=== PATIENT | female | born 1975 | race Caucasian/White ===

== ENCOUNTER 2017-10-06 07:28 | Day surgery (SDC) | payer BC, SELFPAY ==
[2017-10-02 09:29] LABS: Hemoglobin 13.6 g/dl (12.0-15.0); Mean Corp Hgb Conc 31.6 g/gl (32-36); Mean Corpuscular Hgb 29.6 pg (27.0-32.0); Mean Corpuscular Volume 93.5 fL (81-99); Mean Platelet Vol. 9.5 fl (6.2-12.0); Platelet Count 339 K/mm3 (150-450); RBC Distribution Width CV 13.7 % (11.6-14.6); RBC Distribution Width SD 47.1 fl (35.1-43.9)
[2017-10-02 09:34] LABS: International Normalized Ratio 0.9; Prothrombin Time (Protime)PT. 12.6 SECONDS (11.7-14.9)
[2017-10-02 09:35] LABS: Partial Thromboplast Time 24.8 Seconds (24.1-36.2)
[2017-10-02 09:37] LABS: Scan Indicated on CBC? Y/N NO
[2017-10-02 09:50] LABS: Anion Gap 7 (5-15); BUN 18 mg/dL (7-18); BUN/Creat Ratio 20.4 RATIO (10-20); Calcium,Total 8.7 mg/dL (8.5-10.1); Chloride 105 mmol/L (98-107); Creatinine, Serum 0.88 mg/dL (0.55-1.02); EST Glomerular Filtration Rate 74 mL/min (>60); Est Glom Filt Rate - Afr Amer 89 mL/min (>60); Glucose 94 mg/dL (74-106); Potassium 4.4 mmol/L (3.5-5.1); Sodium Level 140 mmol/L (136-145)
--- NOTE | 2017-10-05 21:12 | PCM.HP.BLA ---
History and Physical Date of Admission: 10/06/17 Surgical History and Physical Nancy Owens, a 42 year old female 0 4 0 0 2, presents for RAVH/BSO on October 06, 2017 at 9:30. -- Chronic pelvic pain prior BTO; Irreg bleeding on multiple OCPs tried; dyspareunia -- Pelvic pain which began May and has been present months. Nancy characterizes the quality cramping; Nancy characterizes the quality sharp. Severity is moderate; Associated signs and symptoms are pain with IC. Conservative measures have not been helpful. Prior x 3. MEDICATIONS HISTORY: Current medications prescribed by our practice are: 1. Low-Ogestrel (28) 0.3 mg-30 mcg tablet, 1 po daily Patient is also takin. lisinopril 5 mg tablet, 1 daily 2. Klonopin 0.5 mg tablet ALLERGIES: Morphine, Skin crawling, Sulfonamides, Anaphylaxis rxn, Morphine, Itching of skin, Sulfa (Sulfonamide Antibiotics) and Anaphylaxis Infections - Chicken pox Illnesses - PIH, Gestational DM, PCOS dx'd at 13y.o., Pitting edema, fibromyalgia and osteoarthritis Accidents - no injuries of consequence Hospitalizations - Childbirth and see surgery Review of Systems: GENERAL - Denies fever, or chills SKIN - Denies skin changes EYES - Denies visual changes EARS - Denies difficulty hearing NOSE - Denies nasal congestion or bleeding MOUTH - Denies sore throat or difficulty swallowing NECK - Denies pain or swelling RESPIRATORY - Denies shortness of breath or wheezing CARDIOVASCULAR - Denies palpitations or chest pain GASTROINTESTINAL - Denies nausea, vomiting, diarrhea, constipation GENITOURINARY - Denies dysuria, frequency of urination, incontinence of urine MUSCULOSKELETAL - Denies joint or muscle pain NEUROLOGICAL - Denies localized numbness or weakness PSYCHIATRIC - Denies depression or anxiety ENDOCRINE - Denies heat or cold intolerance, weight loss or gain HEMATO-IMMUNOLOGIC - Denies excesive bleeding with cuts SOCIAL HISTORY: Alcohol Use - denies drinking Smoking - denies smoking Diet - no particular diet Exercise - active Seat Belt Use - always Employer - [employer], [employer] Job Description - peer tutor, wine pouring Illicit Drug Use - denies use of street drugs Sexual Activity - and ACTIVE ONE PARTNER Spouse-Sig Other Name - [place] Spouse-Sig Other Occupation - [employer] Children Name(s) - Yariel Pradhan Control - Prior Tubal FAMILY HISTORY: Family history of Diabetes, Heart Disease, Uterine cancer and Breast cancer. MENSTRUAL HISTORY: LMP Known?- DefiniteAmount/Duration - 5-7, Regularity - regular, LMP - 09/29/17, Age Onset Menarche - 12 PAST PREGNANCIES: Total Pregnancies - 4; Full Term Pregnancies - 0; Premature - 4; Abortions, Induced - 0; Abortions, Spontaneous - 0; Ectopics - 0; Multiple Births - 0; Living Children - 2 SURGICAL HISTORY: 1. 06/09/2001 ; - 2. 04/13/2003 ; - 3. 07/30/2004 ; - 4. cholecystectomy ; - 5. Laparoscopy 1989 ; - 6. 07/30/2004 Tubal ; - 7. Laser Spinal Surgery, 11/20 ; - 8. Lithotripsy, basket extraction, 04/21, 05/22 ; - PHYSICAL EXAM BP- 132/86 Sitting, Right arm, regular cuff Weight- 196.00412 lbs Height- 62.75 inch BMI:35.07 CONSTITUTIONAL - NAD, well nourished, and well developed HEENT - Normocephalic, PERRLA, EOMI NECK - no nuchal rigidity EXTREMITIES - No edema or calf tenderness NEUROLOGICAL - Cranial nerves II-XII grossly intact PSYCHIATRIC - A and O to time, place, person, mood and affect External Genitial Vagina - normal appearance, no lesions and no abnormal discharge Urethra/Urethral Meatus - non-tender Bladder - non-tender Vagina - vaginal dorsey are pink and moist without loss of rugae and no evidence of atropy Cervix - no lesions noted ASSESSMENT/PLAN: 1. Abdominal Pain,Multiple Sites, Lower Abdominal Pain, Unspecified, Pain Localized To Other Parts Of Lower Abdomen, Pelvic Pain and Unspec Pain likely due to endometriosis, adenomyosis, or scar tissue (multiple C/S) Pain with intercourse if deep inside. May be due to bumping against cervix or ovaries. OCPs not helpful and declines further surgery. Wants to proceed with RAVH/BSO. Discussed RBAs and all questions answered.
--- NOTE | 2017-10-05 21:15 | HP.PCM_ITS ---
History and Physical Date of Admission: 10/06/17 Surgical History and Physical Nancy Owens, a 42 year old female 0 4 0 0 2, presents for RAVH/ BSO on October 06, 2017 at 9:30. -- Chronic pelvic pain prior BTO; Irreg bleeding on multiple OCPs tried; dyspareunia -- Pelvic pain which began May and has been present months. Nancy characterizes the quality cramping; Nancy characterizes the quality sharp. Severity is moderate; Associated signs and symptoms are pain with IC. Conservative measures have not been helpful. Prior x 3. MEDICATIONS HISTORY: Current medications prescribed by our practice are: 1. Low-Ogestrel (28) 0.3 mg-30 mcg tablet, 1 po daily Patient is also takin. lisinopril 5 mg tablet, 1 daily 2. Klonopin 0.5 mg tablet ALLERGIES: Morphine, Skin crawling, Sulfonamides, Anaphylaxis rxn, Morphine, Itching of skin, Sulfa (Sulfonamide Antibiotics) and Anaphylaxis Infections - Chicken pox Illnesses - PIH, Gestational DM, PCOS dx'd at 13y.o., Pitting edema, fibromyalgia and osteoarthritis Accidents - no injuries of consequence Hospitalizations - Childbirth and see surgery Review of Systems: GENERAL - Denies fever, or chills SKIN - Denies skin changes EYES - Denies visual changes EARS - Denies difficulty hearing NOSE - Denies nasal congestion or bleeding MOUTH - Denies sore throat or difficulty swallowing NECK - Denies pain or swelling RESPIRATORY - Denies shortness of breath or wheezing CARDIOVASCULAR - Denies palpitations or chest pain GASTROINTESTINAL - Denies nausea, vomiting, diarrhea, constipation GENITOURINARY - Denies dysuria, frequency of urination, incontinence of urine MUSCULOSKELETAL - Denies joint or muscle pain NEUROLOGICAL - Denies localized numbness or weakness PSYCHIATRIC - Denies depression or anxiety ENDOCRINE - Denies heat or cold intolerance, weight loss or gain HEMATO-IMMUNOLOGIC - Denies excesive bleeding with cuts SOCIAL HISTORY: Alcohol Use - denies drinking Smoking - denies smoking Diet - no particular diet Exercise - active Seat Belt Use - always Employer - [employer] Job Description - professional tutor, wine pouring Illicit Drug Use - denies use of street drugs Sexual Activity - and ACTIVE ONE PARTNER Spouse-Sig Other Name - [place] Spouse-Sig Other Occupation - [employer] Children Name(s) - Yariel Pradhan Control - Prior Tubal FAMILY HISTORY: Family history of Diabetes, Heart Disease, Uterine cancer and Breast cancer. MENSTRUAL HISTORY: LMP Known?- DefiniteAmount/Duration - 5-7, Regularity - regular, LMP - 09/29/17, Age Onset Menarche - 12 PAST PREGNANCIES: Total Pregnancies - 4; Full Term Pregnancies - 0; Premature - 4; Abortions, Induced - 0; Abortions, Spontaneous - 0; Ectopics - 0; Multiple Births - 0; Living Children - 2 SURGICAL HISTORY: 1. 06/09/2001 ; - 2. 04/13/2003 ; - 3. 07/30/2004 ; - 4. cholecystectomy ; - 5. Laparoscopy 1989 ; - 6. 07/30/2004 Tubal ; - 7. Laser Spinal Surgery, 11/20 ; - 8. Lithotripsy, basket extraction, 04/21, 05/22 ; - PHYSICAL EXAM BP- 132/86 Sitting, Right arm, regular cuff Weight- 196.22337 lbs Height- 62.75 inch BMI:35.07 CONSTITUTIONAL - NAD, well nourished, and well developed HEENT - Normocephalic, PERRLA, EOMI NECK - no nuchal rigidity EXTREMITIES - No edema or calf tenderness NEUROLOGICAL - Cranial nerves II-XII grossly intact PSYCHIATRIC - A and O to time, place, person, mood and affect External Genitial Vagina - normal appearance, no lesions and no abnormal discharge Urethra/Urethral Meatus - non-tender Bladder - non-tender Vagina - vaginal dorsey are pink and moist without loss of rugae and no evidence of atropy Cervix - no lesions noted ASSESSMENT/PLAN: 1. Abdominal Pain,Multiple Sites, Lower Abdominal Pain, Unspecified, Pain Localized To Other Parts Of Lower Abdomen, Pelvic Pain and Unspec Pain likely due to endometriosis, adenomyosis, or scar tissue ( multiple C/S) Pain with intercourse if deep inside. May be due to bumping against cervix or ovaries. OCPs not helpful and declines further surgery. Wants to proceed with RAVH/BSO. Discussed RBAs and all questions answered.
[2017-10-06] VITALS (10 sets, daily range): BP systolic 103–150; BP diastolic 71–90; PULSE 75–87; RESP 18–20; TEMP 36.2–37.4; O2SAT 94–100; BMI 34.2
--- NOTE | 2017-10-06 10:25 | PCM.OP.BLANK ---
Operative Report Date of Procedure: 10/06/17 Surgeon: Samson Anders MD, FACOG Wool Fleece Grader: JANAE Toney Anesthesia: Kellie Moscoso MD Type of anesthesia: General Endotracheal Procedure: Robotic Assisted Vaginal Hysterectomy and Bilateral Salpingoophrectomy Pre-Op: Endometriosis, Pelvic Pain, Irregular Cycles Post-Op: Endometriosis, Pelvic Pain, Irregular Cycles Findings: 8 cm uterus with normal appearing tubes and ovaries bilaterally; adhesions of omentum to anterior abdominal wall; adhesions of the bladder to the anterior uterus from prior C-sections Indication: This is a 42 year old patient who has been having the above problems. Conservative measures have not been helpful. The patient has been counseled regarding the risks, benefits and alternatives of this procedure including the possibility of bleeding, infection, and injury to surrounding structures such as bowel bladder and all questions were answered. She understands that is BSO is needed that she will need to be on HRT for an indefinite period of time. Procedure: Pt taken to the operating room where after induction of general anesthesia the patient was prepped and draped in the usual sterile fashion and placed on a non-slip Huggy-u-vac device. Trendendelenburg test was satisfactory. Bladder was drained of urine with a Swain catheter which was left in place. Anterior cervix grasped and cervix was dilated to about 3-4 mm. Uterus sounded to 9 cms. 0-Vicryl suture was placed at the 3:00 and 9:00 position of the cervix. A small v-care device was then placed in the uterus to allow uterine manipulation and attention was turned to the laparoscopic portion of the procedure. Ropivocaine 0.5% was injected approximately 2-3 cm superior to the umbilicus and an 8 mm robotic camera port was introduced directly with intraperitoneal placement confirmed with insufflation. 8 mm robotic side ports were introduced under direct visualization approximately 11-13 cm lateral and 2 cm inferior to the umbilical port. A 5 mm left upper quadrant port was introduced and airseal insufflation with CO2 was started. The above findings were noted. Robot was docked without difficulty and attention turned to the robotic portion of the procedure. Approximately 20 cc of Ropivicaine was used. Anterior abdominal wall adhesions were taken down with bipolar and monopolar cautery. Bilateral infundibulocal ligaments/mesosalpinx were ligated with 35 guaman bipolar coagulation to the level of the round ligament. The posterior aspect of the cervix was identified and then opened for about 1 cm using 25 watt monopolar cautery identifying the V-care device which had been placed vaginally. Bladder flap was opened and divided to the level of the round ligaments using monopolar cautery. Progressive bites were then ligated on each side of the cervix with 35 guaman bipolar cautery to the uterine arteries. The anterior vaginal mucosa was then entered and cervix circumscribed with monopolar cautery. Uterus and attached ovaries and tubes were then removed through the vagina. Vaginal cuff was closed first with 0-Vicryl Zion stitches placed at each angle followed by closure of the mid-cuff with 0-Monocryl V-lock suture in two layers. Pelvis was copiously irrigated with saline and the right ureter was noted to peristalse. Robot was undocked and trocars were removed with as much gas as possible. Incisions were closed with 4-0 Monocryl subcuticular sutures and incisions covered with steri-strips and opsite dressing. The patient tolerated the procedure well and was taken to the recovery room in satisfactory condition. Sponge, instruments and needle counts were all correct. There were no apparent complications of the surgery. Cefotan 2 gms IV was given prior to the procedure. Estimated Blood Loss: Less than 100 cc Specimen to Pathology: Uterus and bilateral tubes and ovaries
--- NOTE | 2017-10-06 10:35 | PCM.DC.VHY ---
Discharge Diet: No Restrictions Discharge Activity: Return to Normal Activity, May Not Drive - while taking narcotic pain medications., May Shower, May Take a Tub Bath May resume sexual activity in: 6-8 weeks Call your doctor if your incision/area has: Continuous Slow Oozing, Sudden Increased Bleeding, Increased Pain/ Swelling, Increased Redness, Foul Smelling Discharge Call your doctor if you observe: Fever of 101 or Higher, Inability to urinate, Inability to have a bowel movement, Using more than one pad per hour Allergies/Adverse Reactions: Allergies Sulfa (Sulfonamide Antibiotics) Allergy (Verified 09/29/17 13:55) Anaphylaxis venom-honey bee [bee venom (honey bee)] Allergy (Verified 09/29/17 13:55) Anaphylaxis morphine Adverse Reaction (Verified 09/29/17 13:55) Itching Medications to take at Discharge Lisinopril [Zestril] 10 mg PO DAILY 07/26/15 Docusate Sodium [Colace] 100 mg PO BID PRN PRN #60 cap 10/06/17 Estradiol 2 mg PO DAILY #100 tab 10/06/17 Oxycodone [Oxyir] 5 mg PO Q6H PRN PRN 7 Days #20 tab 10/06/17 The following prescriptions were given: Oxycodone [Oxyir] 5 mg PO Q6H PRN PRN 7 Days #20 tab PRN Reason: Severe Pain (-01/14) Docusate Sodium [Colace] 100 mg PO BID PRN PRN #60 cap PRN Reason: Constipation Estradiol 2 mg PO DAILY #100 tab Primary Care Physician: Lucas Reyes MD [Primary Care Provider] - Test Results: Please Follow Up With: Samson Anders MD When: 2-3 weeks
[2017-10-06] MEDS: Ropivacaine 0.5% 30 ML Vial (10:55)
[2017-10-06] MEDS: Ketorolac 30 MG/ML Syringe IV ×2 (14:08→17:47)
[2017-10-06] MEDS: Dextrose 5%-Lactated Ringers 1,000 ML 150 ML IV ×2 (14:08→20:24)
[2017-10-06] MEDS: HYDROmorphone 0.5 MG/0.5 ML SYRINGE IV (15:33)
[2017-10-06] MEDS: 0.9% NaCl Peripheral Flush Adult/Peds IV ×3 (15:34→17:54)
[2017-10-06] MEDS: Enoxaparin 30 MG/0.3 ML Syringe SC (17:47)
[2017-10-06] MEDS: proMETHazine 25 MG/ML Syringe 12.5 MG IV (17:54)
[2017-10-06] MEDS: oxyCODONE 5 MG Tablet PO (20:24)
[2017-10-06] MEDS: Acetaminophen 500 MG Tablet 1000 MG PO (22:01)
--- NOTE | 2017-10-07 | HYST_PTH ---
PATIENT: RAFA RODRIGUEZ [place] [facility] [place][id number] AGE/SX: 42/F ROOM: RE10/06/[address]: Dr. Samson Anders MD : 1975 BED: DIS: 10/07/2017 SPEC #: [id number] RECD: 10/07/17 13:05 STATUS: PORSHA ARGENIS #: [id number] XENIA: 10/07/17 00:[address]: Samson Anders DEPT: SURGICAL PATHOLOGY RECD BY: Gerson Freeman ENTERED: 10/07/17 13:05 SP TYPE: HYSTERECT OTHR DR: Dr. Lucas Reyes MD Tissues: Uterus, NOS Procedures: Surgery Specimen Level V HEADER OPERATION: Robotic assisted vaginal hysterectomy bilateral salpingo PRE-OP DIAGNOSIS: Endometriosis, pelvic pain, irregular cycles TISSUE SUBMITTED: Uterus, cervix, bilateral fallopian tubes, bilateral ovaries MICROSCOPIC DIAGNOSIS Uterus, hysterectomy: Cervix ? nabothian cysts and minimal chronic inflammation. Endometrium ? proliferative endometrium with cystic change. Myometrium ? leiomyoma and superficial adenomyosis. Right ovary and fallopian tube ? tubo-ovarian adhesions and follicular cysts. Left ovary and fallopian tube ? tubo-ovarian adhesions and follicular cysts. Benign paratubal cysts. AM:jadon 10/09/17 MICROSCOPIC DESCRIPTION Slides are reviewed. GROSS DESCRIPTION Received in fixative is one container labeled with the patient's name and designated uterus. The specimen consists of a uterus with attached cervix and attached right and left fallopian tubes and ovaries. The uterus with cervix measures 9.8 x 5.6 x 4.2 cm and weighs 78.8 gm. The external surface is smooth and glistening. The ectocervix is unremarkable. The external os is oval in contour. The endocervical canal measures 3.5 cm in length and is grossly unremarkable. The triangular endometrial cavity measures 4 x 2.8 cm. The velvety, reddish-noriega endometrium measures up to 0.2 cm in thickness. The myometrium measures 2 cm in greatest thickness and contains a smooth, glistening, rubbery nodule measuring 0.7 cm in greatest dimension. The right fallopian tube measures 5 cm in length and 0.5 cm in average diameter and contains a normal fimbriated end. The mid portion of the fallopian tube is closely adherent to the adjacent noriega ovary that measures 4 x 2.5 x 2 cm. The external surface of this ovary and fallopian tube are inked in black ink. Serial sections of the ovary reveal some multiple cysts containing clear to bloody fluid ranging in size from 0.2 to 1.2 cm in greatest dimension. The left fallopian tube and ovary are similar in appearance and also shows tubo-ovarian adhesions. The left fallopian tube measures 5 cm in length and 0.6 cm in diameter. The cystic left ovary measures 3 x 2.5 x 2 cm. The external surface of the ovary and fallopian tube is inked in blue ink. Serial sections of the left ovary reveal multiple cysts ranging in size from 0.7 to 1 cm and containing clear to bloody fluid. [employer] Developer sections are submitted in [] cassettes as follows: 1 - anterior cervix, 2 - posterior cervix, 3 & 4 - anterior uterine wall, 5 & 6 - posterior uterine wall, 7 ? myometrial mass, 8 & 9 ? right ovary and fallopian tube, 1012 ? left ovary and fallopian tube. / AM:jadon 10/07/17 TC:1 CPT: 91701
[2017-10-07] MEDS: Ketorolac 30 MG/ML Syringe IV ×2 (00:09→05:45)
[2017-10-07 02:30] VITALS: BP 108/67; PULSE 80; RESP 18; TEMP 36.8; O2SAT 97
[2017-10-07] MEDS: oxyCODONE 5 MG Tablet PO (03:46)
[2017-10-07] MEDS: Dextrose 5%-Lactated Ringers 1,000 ML 150 ML IV (03:47)
[2017-10-07] MEDS: Acetaminophen 500 MG Tablet 1000 MG PO (05:45)
[2017-10-07] MEDS: 0.9% NaCl Peripheral Flush Adult/Peds IV (05:45)
--- NOTE | 2017-10-07 06:27 | PCM.PN.OB ---
Subjective: Patient without complaints. Tolerating diet well. Positive flatus. Swain out. Denies any nausea. - Physical Exam Vital Signs AF, VSS Temp Pulse Resp BP Pulse Ox 98.2 F 80 18 108/67 97 10/07/17 02:30 10/07/17 02:30 10/07/17 02:30 10/07/17 02:30 10/07/17 02:30 Oxygen Flow Rate (L/min) 1 Oxygen Delivery Method Room Air Weight: 193 lb 1.999 oz Body Mass Index (BMI) 34.2 Intake and Output for Last 24 Hours 10/05/17 10/06/17 10/07/17 23:59 23:59 23:59 Intake Total 2894 / 2894 2564 / 2564 Output Total 590 / 590 1825 / 1825 Balance 2304 / 2304 739 / 739 Wounds are clean, dry, intact. Good urine output. Hemoglobin and creatinine pending for today. Medical Necessity - Tobacco Use Smoking Status: Never smoker Assessment/Plan Doing well postoperative day #1 status post robotic assisted vaginal hysterectomy and bilateral salpingo-oophorectomy. Will release to home with routine instructions. Follow-up in 2 and 6 weeks.
[2017-10-07 06:47] LABS: Hematocrit 36.4 % (37-47); Hemoglobin 11.6 g/dl (12.0-15.0); Mean Corp Hgb Conc 31.9 g/gl (32-36); Mean Corpuscular Hgb 30.1 pg (27.0-32.0); Mean Corpuscular Volume 94.3 fL (81-99); Mean Platelet Vol. 9.3 fl (6.2-12.0); Platelet Count 268 K/mm3 (150-450); RBC Distribution Width CV 13.8 % (11.6-14.6); RBC Distribution Width SD 47.3 fl (35.1-43.9); Red Blood Count 3.86 M/mm3 (4.2-5.4); White Blood Count 7.4 K/mm3 (4.4-11.0)
[2017-10-07 06:49] LABS: Creatinine, Serum 0.79 mg/dL (0.55-1.02); EST Glomerular Filtration Rate 84 mL/min (>60); Est Glom Filt Rate - Afr Amer 102 mL/min (>60); Estimated Creatinine Clearance 75.17 ml/min
[2017-10-07 06:52] LABS: Scan Indicated on CBC? Y/N NO
[2017-10-07 08:55] VITALS: BP 141/84; PULSE 80; RESP 18; TEMP 36.7; O2SAT 98
== END 2017-10-07 09:22 | disposition home or self-care (01) ==
LOC: SDC 07:28 → AC 07:29 → MS3 10-09 09:09
PROVIDERS: Family Provider Family Medicine; PCP Family Medicine; Visit Provider Obstetrics & Gynecology
PROC: 0UT90ZZ Resection of Uterus, Open Approach (ICD-10-PCS; CPT 58552; principal; 2017-10-06 09:10)
DX: D26.1 Other benign neoplasm of corpus uteri (principal); N88.8 Other specified noninflammatory disorders of cervix uteri; N73.6 Female pelvic peritoneal adhesions (postinfective); N83.8 Other noninflammatory disorders of ovary, fallopian tube and broad ligament; N83.02 Follicular cyst of left ovary; N83.01 Follicular cyst of right ovary; Z87.442 Personal history of urinary calculi; K21.9 Gastro-esophageal reflux disease without esophagitis; Z79.899 Other long term (current) drug therapy; I10 Essential (primary) hypertension; K58.9 Irritable bowel syndrome, unspecified; N92.6 Irregular menstruation, unspecified; G89.29 Other chronic pain; R10.2 Pelvic and perineal pain; N94.10 Unspecified dyspareunia; M79.7 Fibromyalgia; M19.90 Unspecified osteoarthritis, unspecified site; E28.2 Polycystic ovarian syndrome
CPT/HCPCS: 00940; 58552; S2900; 36415; 80048; 82565; 85027; 85610; 85730; 86850; 86900; 88307; J7120; A4216; J2405

== ENCOUNTER → 2017-10-22 10:30 | Outpatient (CLI) | payer BC, SELFPAY | PROVIDERS: Visit Provider Obstetrics & Gynecology | DX: N39.0 Urinary tract infection, site not specified (principal) | CPT/HCPCS: 87086; 87088 ==

== ENCOUNTER 2018-01-06 20:10 | Emergency (ER) | payer BC, SELFPAY ==
[2018-01-06 20:11] VITALS: BP 164/105; PULSE 81; RESP 14; TEMP 37.8; O2SAT 96; BMI 36.2
--- NOTE | 2018-01-06 20:25 | RAD_ITS ---
STUDY: X-RAY - LEFT ANKLE REASON FOR EXAM: Female, 42 years old. Left ankle injury. TECHNIQUE: 3 view(s) of the ankle. COMPARISON: None. FINDINGS: Normal visualized distal tibia and fibula. Normal medial and lateral malleoli. Normal tibiotalar articulation and ankle mortise. There is a plantar calcaneal enthesophyte. There is a bony density along the lateral aspect of the talus. The soft tissue structures are unremarkable. RAD/Ankle min 3 Views IMPRESSION: Indeterminate bony density along the lateral aspect of the talus may reflect a lateral talar process fracture. Electronically Signed: Matilde Richey MD at 20:39 EDT Tel , Service support ,
--- NOTE | 2018-01-06 20:41 | ED.VISSUMM ---
- ER Visit Summary Date of Service: 01/06/18 Chief Complaint: Left ankle injury, pain and swelling History of Present Illness: The patient is a 42 F past medical history of hypertension. Today she was walking off her porch when she accidentally stepped in a hole twisting her left ankle. Complaining of pain and swelling on both sides of her left ankle. Able to but painful to bear weight. No prior fracture no prior ankle or foot surgery. She denies knee or hip pain. She denies any other injuries. This occurred around 1030 this morning. Physical Examination: Well-appearing middle-age female. Vital signs are stable. She does not look septic or toxic. H EENT exam unremarkable. Atraumatic. C-spine nontender. Lungs clear to auscultation bilaterally. Heart regular rhythm no murmur. Chest wall nontender. Abdomen soft nontender. Normal bowel sounds no peritoneal signs. Patient is moving all 4 extremities are neurovascular intact. The left hip and left knee are nontender nonswollen. With normal range of motion. She has mild swelling and tenderness to the left lateral ankle and medially. There is no gross bony deformity. Dorsi and plantar flexion are intact. Achilles tendon is intact. DP pulses intact. The foot and toes are nontender. She is able to wiggle her toes. She has normal touch sensation. Back nontender. Upper extremities unremarkable. Neurologically she is awake and alert. Test Results: Three-view x-ray of her left ankle shows no acute fracture. Mild soft tissue swelling. Emergency Department Course and Treatment: Patient has a left ankle sprain. Treatment Plan: Ice and elevate. Walking orthopedic boot. Crutches. Motrin for pain and swelling. Follow-up. Disposition: Discharge Impression: Left ankle sprain This note was generated with [employer] dictation software. It may contain incorrect words, spelling, and punctuation that were not noted in review of the chart prior to signing ED Disposition - Plan for ED Patient: Chief Complaint: Lower Extremity Injury Referrals: Lucas Reyes MD [Primary Care Provider] -
--- NOTE | 2018-01-06 20:50 | ED.DCSUM_ITS ---
- ER Visit Summary Date of Service: 01/06/18 Chief Complaint: Left ankle injury, pain and swelling History of Present Illness: The patient is a 42 F past medical history of hypertension. Today she was walking off her porch when she accidentally stepped in a hole twisting her left ankle. Complaining of pain and swelling on both sides of her left ankle. Able to but painful to bear weight. No prior fracture no prior ankle or foot surgery. She denies knee or hip pain. She denies any other injuries. This occurred around 1030 this morning. Physical Examination: Well-appearing middle-age female. Vital signs are stable. She does not look septic or toxic. H EENT exam unremarkable. Atraumatic. C- spine nontender. Lungs clear to auscultation bilaterally. Heart regular rhythm no murmur. Chest wall nontender. Abdomen soft nontender. Normal bowel sounds no peritoneal signs. Patient is moving all 4 extremities are neurovascular intact. The left hip and left knee are nontender nonswollen. With normal range of motion. She has mild swelling and tenderness to the left lateral ankle and medially. There is no gross bony deformity. Dorsi and plantar flexion are intact. Achilles tendon is intact. DP pulses intact. The foot and toes are nontender. She is able to wiggle her toes. She has normal touch sensation. Back nontender. Upper extremities unremarkable. Neurologically she is awake and alert. Test Results: Three-view x-ray of her left ankle shows no acute fracture. Mild soft tissue swelling. Emergency Department Course and Treatment: Patient has a left ankle sprain. Treatment Plan: Ice and elevate. Walking orthopedic boot. Crutches. Motrin for pain and swelling. Follow-up. Disposition: Discharge Impression: Left ankle sprain This note was generated with [employer] dictation software. It may contain incorrect words, spelling, and punctuation that were not noted in review of the chart prior to signing ED Disposition - Plan for ED Patient: Chief Complaint: Lower Extremity Injury Referrals: Lucas Reyes MD [Primary Care Provider] -
--- NOTE | 2018-01-06 20:50 | ED.DEP ---
ED Disposition - Plan for ED Patient: Disposition: Home or Assisted Living Chief Complaint: Lower Extremity Injury Instructions: ED Sprain Ankle W X Ray Referrals: Lucas Reyes MD [Primary Care Provider] - 10-14 Days if not better Additional Instructions: Ice and elevate. Increase weightbearing as tolerated. Motrin for pain and swelling. Follow-up with your doctor if not pain-free in 10-14 days.
[2018-01-06 21:03] VITALS: BP 153/100; PULSE 83; RESP 18; O2SAT 95
== END 2018-01-06 21:04 | disposition home or self-care (01) ==
PROVIDERS: Emergency Provider Emergency Medicine; Family Provider Family Medicine; PCP Family Medicine
DX: S93.402A Sprain of unspecified ligament of left ankle, initial encounter (principal); X50.1XXA Overexertion from prolonged static or awkward postures, initial encounter; Y93.9 Activity, unspecified; Y92.9 Unspecified place or not applicable; I10 Essential (primary) hypertension; Z79.899 Other long term (current) drug therapy
CPT/HCPCS: 73610; 99284

== ENCOUNTER → 2019-05-03 14:33 | Outpatient (CLI) | payer BC, SELFPAY ==
--- NOTE | 2019-05-03 14:45 | RAD_ITS ---
STUDY: X-RAY - ABDOMEN/PELVIS REASON FOR EXAM: Female, 44 years old. Lower abdominal and flank pain for 2 1/2 weeks. Hematuria. Foot and ankle edema. Nausea. TECHNIQUE: AP supine abdomen. COMPARISON: CT abdomen and pelvis January 31, 2016. FINDINGS: Normal visualized lung bases. There is an unremarkable bowel gas pattern. There is no demonstrated free abdominal air. The visualized liver, spleen and kidneys are grossly normal in size and morphology. Normal soft tissue structures. Normal visualized osseous structures. Surgical clips right upper quadrant. RAD/Abdomen Single View IMPRESSION: Nonspecific bowel gas pattern without evidence of obstruction. No pathologic calcifications identified. Electronically Signed: Mark Mendoza MD at 4:53 EST , Service support ,
--- NOTE | 2019-05-03 16:33 | CT_ITS ---
STUDY: CT ABDOMEN AND PELVIS WITHOUT CONTRAST REASON FOR EXAM: Female, 44 years old. PT STATED RT FLANK PAIN, HX OF STONES RADIATION DOSAGE (If Supplied By Facility): CTDIvol = ( 16.85 ) mGy, DLP = ( 816.75 ) mGycm TECHNIQUE: Transaxial images were obtained from the dome of the diaphragm to the symphysis pubis without oral contrast, and without intravenous contrast. Sagittal and coronal images were reconstructed. Individualized dose optimization techniques were used for this CT. COMPARISON: None. FINDINGS: The visualized lung bases are unremarkable. The visualized portions of the heart are within normal limits. Normal liver. Gallbladder surgically absent. Normal spleen. Normal pancreas. Normal bilateral adrenal glands. Normal right kidney. Normal left kidney. Normal visualized stomach. Normal small intestine. Sigmoid diverticulosis. The appendix is visualized and appears normal. Normal abdominal aorta. Normal inferior vena cava. Normal retroperitoneum. Normal urinary bladder. Normal abdominal wall. Normal osseous structures. CT/Abdomen/Pelvis without Cont IMPRESSION: Normal unenhanced CT of the abdomen and pelvis. Electronically Signed: Mata Borges MD at 17:18 EST , Service support ,
[2019-05-03 17:15] LABS: Hematocrit 40.8 % (37-47); Hemoglobin 13.5 g/dL (12.0-15.0); Mean Corp Hgb Conc 33.1 g/dL (32-36); Mean Corpuscular Hgb 29.7 pg (27.0-32.0); Mean Corpuscular Volume 89.7 fL (81-99); Mean Platelet Vol. 9.1 fl (6.2-12.0); Platelet Count 362 K/mm3 (150-450); RBC Distribution Width CV 12.8 % (11.6-14.6); RBC Distribution Width SD 42.3 fl (35.1-43.9); Red Blood Count 4.55 M/mm3 (4.2-5.4); White Blood Count 7.8 K/mm3 (4.4-11.0)
[2019-05-03 17:59] LABS: ALB/GLOB Ratio 1.2 RATIO (0.9-2.4); AST(SGOT) 23 U/L (15-37); Alanine Aminotransfer ALT/SGPT 42 U/L (13-56); Albumin, Serum 3.8 g/dL (3.2-5.0); Alkaline Phosphatase 48 U/L (45-117); Anion Gap 4 (5-15); BUN 18 mg/dL (7-18); BUN/Creat Ratio 18.5 RATIO (10-20); Calcium,Total 9.3 mg/dL (8.5-10.1); Chloride 108 mmol/L (98-107); Creatinine, Serum 0.97 mg/dL (0.55-1.02); EST Glomerular Filtration Rate 65 mL/min (>60); Est Glom Filt Rate - Afr Amer 79 mL/min (>60); Globulin 3.2 g/dL (2.2-4.2); Glucose 84 mg/dL (74-106); Potassium 3.9 mmol/L (3.5-5.1); Sodium Level 138 mmol/L (136-145)
== END ==
PROVIDERS: PCP Family Medicine; Referring Provider Nurse Practitioner Adult Health; Visit Provider Nurse Practitioner Adult Health
DX: R10.84 Generalized abdominal pain (principal); R31.0 Gross hematuria; Z87.442 Personal history of urinary calculi
CPT/HCPCS: 36415; 74018; 74176; 80053; 85027

== ENCOUNTER 2021-01-29 11:49 | Day surgery (SDC) | payer BC, SELFPAY ==
[2021-01-29] VITALS (7 sets, daily range): BP systolic 122–150; BP diastolic 85–100; PULSE 71–99; RESP 12–20; TEMP 35.7–36.8; O2SAT 96–100; BMI 36.1
--- NOTE | 2021-01-29 11:06 | PCM.OPRPT ---
Problems Associated Problem List Diagnoses (1) Chronic bladder pain: (2) Urinary urgency: (3) Urinary frequency: Report of Operation Date of Procedure: 01/29/21 Pre-Operative Diagnosis: Chronic bladder pain, urinary urgency, urinary frequency Post-Operative Diagnosis: same Surgery/Procedure Performed:: cystoscopy, hydrodistention Surgeon: Mai Mcnulty Type of Anesthesia: General Description of Procedure: The patient is a 45-year-old female presented to the office with bladder pain, urgency and frequency consistent with a diagnosis of interstitial cystitis. After discussing the risks benefits and alternatives, she agreed to proceed with diagnostic cystoscopy and possible intervention under anesthesia. Informed consent was obtained. The patient was taken to the operating room and placed on the operating room table. Anesthesia monitored the head, neck, airway, IV access and vital signs throughout the case. Once anesthesia was appropriately ministered the patient was placed into dorsal lithotomy position was prepped and draped in usual sterile fashion. On pelvic examination there was no prolapse identified. There is hard stool filling the rectal vault. No other abnormalities including mass was found. At this time the cystoscope was inserted through the urethra under direct visualization into the urinary bladder. The urethral and bladder mucosa was visualized in its entirety. No areas of erythema, ulceration, foreign body, mass or other abnormality filled to capacity and allowed to sit for 2 minutes. There was terminal hematuria identified with no glomerulations and a capacity measured at 800 cc. This process was then repeated with the same findings. At this time the patient's bladder was emptied and the cystoscope was removed. The patient was then awakened and taken to the recovery room in good condition. There were no complications during this procedure. Grafts/Implants Used: none Complications None Admit VTE Documentation VTE Present on Admission: Yes VTE Mechan Device Prophylaxis: SCD's VTE Pharm Prophylaxis ordered?: No Reason prophylaxis not ordered:: Treatment Not Indicated
[2021-01-29] MEDS: Lactated Ringers 1,000 ML 100 ML IV (12:20)
--- NOTE | 2021-01-29 13:53 | PCM.DC ---
Discharge Instructions Diet Discharge Diet: No restrictions Activity Discharge Activity: Return to Normal Activity May resume sexual activity in: No Restrictions Dressing / Incision Call your doctor if you observe: Fever of 101 or Higher, Inability to urinate, Inability to have a bowel movement and Uncontrolled pain Follow Up Care Please Follow Up With: Mai Mcnulty MD When: call office for appt. Test Results: Test results from this visit will be discussed in further detail at your follow-up appointment, if applicable. Discharge Plan Admission Attending Provider: Mai Mcnulty Primary Care Provider: Itz Frost Discharge Orders/Prescriptions Prescriptions: New oxycodone-acetaminophen [oxycodone-acetaminophen] 1 TABLET tablet 2 tab PO Q8H PRN PRN (Reason: Pain) 7 Days Qty: 20 RF: 0 cephalexin [cephalexin] 500 MG capsule 500 mg PO Q12 3 Days Qty: 6 RF: 0 phenazopyridine [Pyridium] 200 MG tablet 200 mg PO TID PRN PRN (Reason: Bladder Spasms) 7 Days Qty: 30 RF: 0 Continued lisinopril 2.5 MG tablet 10 mg PO DAILY RF: 0 bupropion HCl [Wellbutrin SR] 150 mg Tablet Sustained-Release 12 Hr 150 mg PO DAILY RF: 0 atorvastatin 20 mg Tablet 20 mg PO QHS RF: 0 Referrals / Follow Up: Itz Frost MD [Primary Care Provider] - Disposition Disposition (needs filled in before D/C Order can be placed): Home, Self Care
[2021-01-29] MEDS: Cefazolin 2 GM in 0.9% Normal Saline 100 ML IV (14:11)
== END 2021-01-29 16:39 | disposition home or self-care (01) ==
LOC: SDC 11:51 → AC 11:52
PROVIDERS: PCP Family Medicine; Referring Provider Urology; Visit Provider Urology
PROC: 0TBB8ZX Excision of Bladder, Via Natural or Artificial Opening Endoscopic, Diagnostic (ICD-10-PCS; CPT 52000; principal; 2021-01-29 13:20)
PROC: 0T7B7ZZ Dilation of Bladder, Via Natural or Artificial Opening (ICD-10-PCS; CPT 52000; 2021-01-29 13:20)
DX: R35.0 Frequency of micturition (principal); R39.15 Urgency of urination; R39.82 Chronic bladder pain; N39.3 Stress incontinence (female) (male); R35.1 Nocturia; I10 Essential (primary) hypertension; E78.00 Pure hypercholesterolemia, unspecified; M19.90 Unspecified osteoarthritis, unspecified site; F41.9 Anxiety disorder, unspecified; Z79.899 Other long term (current) drug therapy
CPT/HCPCS: 00910; 52000; J7120; J2405

== ENCOUNTER 2021-02-13 14:44 | Emergency (ER) | payer BC, SELFPAY ==
[2021-02-13 14:46] VITALS: BP 142/90; PULSE 87; RESP 16; TEMP 36.6; O2SAT 98; BMI 37.0
--- NOTE | 2021-02-13 14:48 | EKG12_ITS ---
Test Reason : CP Blood Pressure : / mmHG Vent. Rate : 080 BPM Atrial Rate : 080 BPM P-R Int : 134 ms QRS Dur : 092 ms QT Int : 388 ms P-R-T Axes : 040 045 037 degrees QTc Int : 447 ms Normal sinus rhythm Normal ECG Confirmed by LINA QUESADA MD ([id number]), purchasing expeditor SERGIO SCHWARZ ([id number]) on 02/15/2021 8:49:50 AM Referred By: ERLINDA
--- NOTE | 2021-02-13 15:35 | RAD_ITS ---
STUDY: X-RAY CHEST REASON FOR EXAM: Female, 45 years old. chest pain TECHNIQUE: AP portable COMPARISON: None. FINDINGS: Minor interstitial thickening in the lower lobes likely chronic. No gross infiltration. There is no demonstrated pleural abnormality. Normal size heart. Normal mediastinum and christine. Normal visualized pulmonary arteries. Normal visualized aortic arch and descending thoracic aorta. Dorsal spine demonstrates mild degenerative change . Normal visualized ribs, clavicles, and shoulders. Postop change status post cholecystectomy. RAD/Chest 1 View (Portable) IMPRESSION: Minor bibasilar interstitial thickening likely chronic. No gross infiltration or pulmonary edema Electronically Signed: Carson Lira MD at 16:52 EST , Service support ,
[2021-02-13 16:55] LABS: Absolute Lymphocyte Count 2.99 X10^3/uL (0.83-4.51); Absolute Neutrophil Count 5.4 X10^3/uL (2.0-7.7); Basophil# 0.07 X10^3/uL; Basophil% 0.7 % (0-1); Eosinophil# 0.29 X10^3/uL; Eosinophils% 3.1 % (0-5); Hematocrit 45.5 % (37-47); Hemoglobin 15.1 g/dL (12.0-15.0); Lymphocyte # 2.99 X10^3/ul (0.83-4.51); Lymphocyte % 31.9 % (19-41); Mean Corp Hgb Conc 33.2 g/dL (32-36); Mean Corpuscular Hgb 30.6 pg (27.0-32.0); Mean Corpuscular Volume 92.1 fL (81-99); Mean Platelet Vol. 9.2 fl (6.2-12.0); Monocyte# 0.55 X10^3/uL; Monocyte% 5.9 % (0-10); NRBC Flagged by Analyzer 0 % (0-5); Neutrophil # 5.44 X10^3/uL (2.7-7.7); Platelet Count 372 K/mm3 (150-450); RBC Distribution Width CV 12.5 % (11.6-14.6); RBC Distribution Width SD 42.3 fl (35.1-43.9); Red Blood Count 4.94 M/mm3 (4.2-5.4); White Blood Count 9.4 K/mm3 (4.4-11.0)
--- NOTE | 2021-02-13 17:40 | ED.RN ---
called lab to notify of needing assistance to obtain d- dimer
[2021-02-13 17:43] LABS: Anion Gap 7 (5-15); BUN 20 mg/dL (7-18); BUN/Creat Ratio 20.1 RATIO (10-20); Calcium,Total 9.6 mg/dL (8.5-10.1); Chloride 105 mmol/L (98-107); Creatinine, Serum 0.99 mg/dL (0.55-1.02); EST Glomerular Filtration Rate 63 mL/min (>60); Est Glom Filt Rate - Afr Amer 77 mL/min (>60); Estimated Creatinine Clearance 55.56 ml/min; Glucose 88 mg/dL (74-106); Sodium Level 135 mmol/L (136-145); Troponin-I HS 6 pg/mL (3.0-54.0)
[2021-02-13 18:41] LABS: D-Dimer Quantitative (DVT/PE) 0.29 FEU/ug/m (0.27-0.49)
--- NOTE | 2021-02-13 19:33 | EX.ED.DYSGE1 ---
HPI History of Present Illness Chief Complaint: Chest Pain Narrative Narrative: Patient is a 45-year-old female who states that she had some left-sided chest pain on Friday which resolved but then returned today while at work. She states she is not had nausea vomiting diaphoresis or shortness of breath associated with this but she was telling people at work about her symptoms and they advised her to come to the hospital for evaluation. Patient denies any recent travel surgery or history of DVT/PE PFSH PFSH Medical History Alcohol use Anxiety Arthritis Chronic bladder pain Fatigue Hay fever Heartburn Hemorrhoids High cholesterol History of echocardiogram History of edema History of stress test Hypertension Hypertension Injury of back Knee pain Migraine headache Non-smoker Severe headache Shoulder pain Urinary frequency Urinary urgency Home Medications lisinopril 40 mg PO DAILY 07/26/15 [History Last Taken 10/06/17] atorvastatin 20 mg PO QHS 01/22/21 [History Last Taken Unknown] hydrochlorothiazide 12.5 mg PO DAILY 02/13/21 [History Last Taken Unknown] Allergy/AdvReac Type Severity Reaction Status Date / Time Sulfa (Sulfonamide Allergy Anaphylaxis Verified 02/13/21 14:47 Antibiotics) venom-honey bee Allergy Anaphylaxis Verified 02/13/21 14:47 [bee venom (honey bee)] morphine AdvReac Itching Verified 02/13/21 14:47 Surgical History History of History of hysterectomy Hx of colonoscopy Hx of cystoscopy Hx of discectomy Hx of laparoscopy Hx of tubal ligation Social History (Updated 11/30/17 @ 08:51 by Alon MANE, ALHAJI) Smoking Status: Never smoker alcohol intake: current ROS ROS ED Constitutional Constitutional ED: Denies chills or fever(s) ENT ENT ED: Denies sore throat Cardiovascular Cardiovascular: Reports chest pain; Denies palpitations or racing heartbeat Respiratory/Chest Respiratory/Chest: Denies cough or dyspnea Gastrointestinal Gastrointestinal: Denies abdominal pain, diarrhea, nausea or vomiting Genitourinary Genitourinary ED: Denies dysuria Musculoskeletal Musculoskeletal: Denies myalgias Integumentary Denies rash Neurologic Neurologic: Denies headache(s) Hematologic/Lymphatic Hematologic/Lymphatic: Denies easy bleeding or easy bruising EXAM Physical Exam Const Vital Signs: 02/13/21 14:46 02/13/21 17:34 02/13/21 17:36 Temperature 97.8 F Temperature Source Temporal Pulse Rate 87 Respiratory Rate 16 Respiratory Effort Normal Non-Labored Blood Pressure 142/90 H Blood Pressure Mean 107 Pulse Ox 98 Oxygen Delivery Method Room Air Room Air Positive well nourished and well developed General Appearance ED: well developed HEENT Reports moist mucous membranes Eyes PERRL and EOMs intact bilaterally Neck supple Chest Wall Chest Narrative: Pain with palpation along the left midsternal portion of the chest without bony deformity or crepitance Resp normal respiratory effort and clear to auscultation bilaterally Cardio regular rate and regular rhythm GI normal to inspection, nondistended, normoactive bowel sounds, non-tender, non-distended and no masses GI Narrative: No pulsatile mass Auscultation: normoactive bowel sounds Palpation: soft Extremity normal to inspection Extremity Narrative: No asymmetric edema no pitting edema negative Homans' sign bilaterally Neuro oriented x3 and CN's II-XII intact bilaterally Sensorium / Orientation: alert Motor Exam: strength 5/5 throughout Psych mental status grossly normal Skin no rashes or lesions noted MDM MDM MDM Narrative Medical decision making narrative: Patient presented to the ER with chest pain that was not classic cardiac in nature. However she does have risk factors for coronary artery disease so a basic work-up was obtained. EKG showed sinus rhythm chest x-ray revealed no widened mediastinum or pneumonia or pneumothorax. Troponin and D-dimer also negative. Therefore at this time with reproducible pain and negative work-up I do not feel there is need for placement and she is safe for discharge Lab Data Attestation: I reviewed the patient's lab results. Labs: Laboratory Results - last 24 hr 02/13/21 02/13/21 02/13/21 16:44 16:44 18:22 WBC 9.4 RBC 4.94 Hgb 15.1 H Hct 45.5 MCV 92.1 MCH 30.6 MCHC 33.2 RDW Std Deviation 42.3 RDW Coeff of Wan 12.5 Plt Count 372 MPV 9.2 Immature Gran % (Auto) 0.400 Neut % (Auto) 58.0 Lymph % (Auto) 31.9 Stanton % (Auto) 5.9 Eos % (Auto) 3.1 Baso % (Auto) 0.7 Absolute Neuts (auto) 5.4 Absolute Lymphs (auto) 2.99 Nucleated RBC % 0 D-Dimer Quant (PE/DVT) 0.29 Sodium 135 L Potassium 4.0 Chloride 105 Carbon Dioxide 23.0 Anion Gap 7 BUN 20 H Creatinine 0.99 Estim Creat Clear Calc 55.56 Est GFR (MDRD) Af Amer 77 Est GFR (MDRD) Non-Af 63 BUN/Creatinine Ratio 20.1 H Glucose 88 Calcium 9.6 Troponin I High Sens 6 Radiography Diagnostic Testing: Clinical Impression(s) from Imaging Studies Chest X-Ray 02/13/21 15:35 IMPRESSION: Minor bibasilar interstitial thickening likely chronic. No gross infiltration or pulmonary edema Electronically Signed: Carson Lira MD at 16:52 EST , Service support , Discharge Plan Triage Chief Complaint: Chest Pain ED Provider: Jonathon Zamudio Dx/Rx/DC Orders Clinical Impression: Nonspecific chest pain Instructions: ED Chest Pain, Noncardiac, ED Strain Chest Wall Prescriptions: No Action lisinopril 2.5 MG tablet 40 mg PO DAILY RF: 0 atorvastatin 20 mg Tablet 20 mg PO QHS RF: 0 hydrochlorothiazide 12.5 mg Capsule 12.5 mg PO DAILY RF: 0 Primary Care Provider: Itz Frost Referrals: Itz Frost MD [Primary Care Provider] - Disposition Disposition: Home, Self Care
== END 2021-02-13 19:56 | disposition home or self-care (01) ==
PROVIDERS: Emergency Provider Emergency Medicine; PCP Family Medicine
DX: R07.9 Chest pain, unspecified (principal); I10 Essential (primary) hypertension; E78.00 Pure hypercholesterolemia, unspecified; M19.90 Unspecified osteoarthritis, unspecified site; Z79.899 Other long term (current) drug therapy
CPT/HCPCS: 36415; 71045; 80048; 84484; 85025; 85379; 93005; 99283

== ENCOUNTER 2022-02-28 14:42 | Emergency (ER) | payer BC, SELFPAY ==
[2022-02-28 14:42] VITALS: BP 122/73; PULSE 90; RESP 18; TEMP 36.8; O2SAT 96
[2022-02-28 14:43] VITALS: BP 118/70; PULSE 99; RESP 16; TEMP 36.2; O2SAT 99; BMI 34.5
--- NOTE | 2022-02-28 14:55 | ED.VIS.LOWEX ---
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 She denies any other injury. [facility] Medical History Alcohol use Anxiety Arthritis Chronic bladder pain Fatigue Hay fever Heartburn Hemorrhoids High cholesterol History of echocardiogram History of edema History of stress test Hypertension Hypertension Injury of back Knee pain Migraine headache Non-smoker Severe headache Shoulder pain Urinary frequency Urinary urgency Home Medications lisinopril 2.5 mg tablet 40 mg PO DAILY BP 07/26/15 [History Last Taken 02/28/22 0800] atorvastatin 20 mg tablet 20 mg PO QHS 01/22/21 [History Last Taken 02/28/22 0800] hydrochlorothiazide 12.5 mg capsule 12.5 mg PO DAILY 02/13/21 [History Last Taken 02/28/22 0800] Allergy/AdvReac Type Severity Reaction Status Date / Time Sulfa (Sulfonamide Allergy Anaphylaxis Verified 02/28/22 14:45 Antibiotics) venom-honey bee Allergy Anaphylaxis Verified 02/28/22 14:45 [bee venom (honey bee)] morphine AdvReac Itching Verified 02/28/22 14:45 Surgical History History of History of hysterectomy Hx of colonoscopy Hx of cystoscopy Hx of discectomy Hx of laparoscopy Hx of tubal ligation Social History Smoking Status: Never smoker alcohol intake: current ROS ROS ED Constitutional Constitutional ED: Denies chills or fever(s) Musculoskeletal Musculoskeletal: Reports extremity pain; Denies neck pain Integumentary Denies Abrasions, rash or wounds Neurologic Neurologic: Denies paresthesias or weakness EXAM Physical Exam Const Vital Signs: 02/28/22 14:43 02/28/22 14:42 Temperature 97.2 F L 98.3 F Temperature Source Temporal Oral Pulse Rate 99 90 Respiratory Rate 16 18 Blood Pressure 118/70 122/73 H Blood Pressure Mean 86 89 Pulse Ox 99 96 Oxygen Delivery Method Room Air Room Air Positive well nourished and well developed General Appearance ED: well developed and NAD Neck full ROM and supple Back/Spine normal ROM and normal to inspection Extremity Extremity Narrative: Swollen and tender right lateral malleolus no gross deformities. Nontender base of the fifth metatarsal and medial malleolus, but tender just above the malleolus and at the mid-fibula level of the lower leg, no fibular head or knee tenderness. No signs of trauma on the lower leg above the ankle. Full range of motion all joints of the extremities. Neuro oriented x3, no focal motor deficits and no sensory deficits noted Sensorium / Orientation: alert Psych mental status grossly normal and thought process normal Skin no wounds Rashes: no rashes MDM MDM MDM Narrative Medical decision making narrative: Three-view x-ray series of the right ankle on my interpretation shows a distal fibular chip avulsion fracture but the mortise is intact and it is otherwise unremarkable. 2 view tibia-fibula x-ray series on my interpretation shows nothing else. Patient was placed in an orthotic boot, she will follow-up with orthopedics within the next couple weeks, that she is she needs to continue it or if she can downgrade to something else. Supportive care advised, she is comfortable this plan she was offered crutches after walking in the boot, she declines them. Discharge Plan Triage Chief Complaint: Lower Extremity Injury ED Provider: Brayan Owusu Dx/Rx/DC Orders Clinical Impression: Closed avulsion fracture of distal end of right fibula Instructions: ED Ankle Fracture, Distal Fibula Prescriptions: No Action lisinopril 2.5 MG tablet 40 mg PO DAILY atorvastatin 20 mg Tablet 20 mg PO QHS hydrochlorothiazide 12.5 mg Capsule 12.5 mg PO DAILY Primary Care Provider: Itz Frost Referrals: Ernesto Moise MD [Med Staff - Active Staff] - 1-2 Weeks Itz Frost MD [Primary Care Provider] - Disposition Disposition: Home, Self Care
--- NOTE | 2022-02-28 15:00 | RAD_ITS ---
STUDY: X-RAY - RIGHT ANKLE REASON FOR EXAM: Female, 47 years old. injury TECHNIQUE: 3 view(s) of the ankle. COMPARISON: None. FINDINGS: A tiny avulsion fracture is present in the undersurface of the lateral malleolus with mild displacement and overlying soft tissue swelling. Normal visualized distal tibia and fibula. Normal medial malleolus. Normal tibiotalar articulation and ankle mortise. Normal visualized talus and calcaneus. The visualized subtalar, talonavicular, calcaneocuboid and tarsal articulations are normal. RAD/Ankle min 3 Views IMPRESSION: 1. Tiny avulsion fracture of the undersurface of the lateral malleolus Electronically Signed: Everett Church MD at 15:47 EST ,
--- NOTE | 2022-02-28 15:00 | RAD_ITS ---
STUDY: X-RAY - RIGHT TIBIA AND FIBULA REASON FOR EXAM: Female, 47 years old. injury TECHNIQUE: 2 view(s) of the tibia and fibula were obtained. COMPARISON: X-ray of the right ankle dated February 28, 2022. FINDINGS: A tiny avulsion fracture is present in the undersurface of the lateral malleolus with mild displacement and overlying soft tissue swelling. Normal tibia and fibula. Normal medial malleolus. Normal tibiotalar articulation and ankle mortise. Normal visualized aspects of the knee joint. RAD/Tibia & Fibula 2 Views IMPRESSION: Acute tiny avulsion fracture of the lateral malleolus Electronically Signed: Everett Church MD at 15:53 EST ,
[2022-02-28] MEDS: Ibuprofen 600 MG Tablet PO (15:04)
== END 2022-02-28 15:59 | disposition home or self-care (01) ==
PROVIDERS: Emergency Provider Emergency Medicine; PCP Family Medicine; Visit Provider Emergency Medicine
DX: S82.61XA Displaced fracture of lateral malleolus of right fibula, initial encounter for closed fracture (principal); W17.2XXA Fall into hole, initial encounter; Y93.81 Activity, refereeing a sports activity; Y92.096 Garden or yard of other non-institutional residence as the place of occurrence of the external cause; I10 Essential (primary) hypertension; E78.00 Pure hypercholesterolemia, unspecified; Z79.899 Other long term (current) drug therapy
CPT/HCPCS: 73590; 73610; 99283

== ENCOUNTER → 2024-06-14 | Outpatient (CLI) | payer BC, SELFPAY ==
--- NOTE | 2024-06-14 12:30 | US_ITS ---
PROCEDURE: KIDNEY AND BLADDER REASON FOR EXAM: Right flank pain. History of stones. TECHNIQUE: Bilateral renal ultrasound. COMPARISON: Comparison is made with prior CT scan of the abdomen and pelvis dated May 03, 2019. FINDINGS: Normal renal sizes, parenchymal thicknesses, and echotextures. No hydronephrosis. No cysts or large solid renal masses. RIGHT Kidney Size: 10.1 cm x 5.3 cm x 4.3 cm Volume: 122 mL Cortical Thickness (if discernible): 1.6 cm (>6mm is normal) LEFT Kidney Size: 9.9 cm x 4.7 cm x 5.2 cm Volume: 128 mL Cortical Thickness (if discernible): 1.6 (>6mm is normal) The bladder is not completely distended for evaluation. US/Kidney and Bladder IMPRESSION: NORMAL RENAL ULTRASOUND Reading Location: [place] [id number]
== END | disposition home or self-care (01) ==
LOC: US 12:28
PROVIDERS: PCP Family Medicine; Referring Provider Internal Medicine Endocrinology, Diabetes & Metabolism; Visit Provider Internal Medicine Endocrinology, Diabetes & Metabolism
DX: R10.9 Unspecified abdominal pain (principal); Z78.0 Asymptomatic menopausal state; Z87.442 Personal history of urinary calculi
CPT/HCPCS: 76770

== ENCOUNTER → 2024-06-17 | Outpatient (CLI) | payer BC, SELFPAY ==
--- NOTE | 2024-06-17 08:00 | BD_ITS ---
PROCEDURE: DEXA BONE DENSITY STUDY REASON FOR EXAM: PRIMARY HYPERPARATHYROIDISM F, age 49 y/o . Postmenopausal. TECHNIQUE: DEXA scan of the lumbar spine and both hips. COMPARISON: None. FINDINGS: Lumbar Spine (L1-L4): g/cm2 (0.720)/T-score (-3.3)/Z-score (-2.4) findings are suggestive of osteoporotic with a high fracture risk. Left Femur Total: g/cm2 (1.076)/T-score (1.1)/Z-score (1.7) Left Femoral Neck: g/cm2 (0.666)/T-score (-1.6)/Z-score (-0.8) Right Femur Total: g/cm2 (0.977)/T-score (0.3)/Z-score (0.8) Right Femoral Neck: g/cm2 (0.764)/T-score (-0.8)/Z-score (0 point) BD/Dexa Bone Density Study IMPRESSION: The patient is considered osteoporotic as outlined below according to World Hea [employer] Organization (WHO) criteria with a high fracture risk. Reading Location: [place]
== END | disposition home or self-care (01) ==
LOC: OPBD 07:57
PROVIDERS: PCP Family Medicine; Referring Provider Internal Medicine Endocrinology, Diabetes & Metabolism; Visit Provider Internal Medicine Endocrinology, Diabetes & Metabolism
DX: Z78.0 Asymptomatic menopausal state (principal); R10.9 Unspecified abdominal pain
CPT/HCPCS: 77080

== ENCOUNTER → 2024-10-04 | Outpatient (CLI) | payer BC, SELFPAY ==
[2024-10-04 11:03] LABS: PTHIN 24 pg/mL (11-61)
[2024-10-04 11:33] LABS: ALB/GLOB Ratio 1.8 RATIO (0.9-2.4); AST(SGOT) 37 U/L (<=31); Alanine Aminotransfer ALT/SGPT 43 U/L (<=34); Albumin, Serum 4.5 g/dL (3.5-5.0); Alkaline Phosphatase 64 U/L (35-104); Anion Gap 14 (5-15); BUN 25 mg/dL (4-19); BUN/Creat Ratio 22.3 RATIO (10-20); Calcium,Total 8.5 mg/dL (7.6-11.0); Carbon Dioxide 25.2 mmol/L (21.0-32.0); Chloride 102 mmol/L (98-108); Creatinine, Serum 1.11 mg/dL (0.70-1.20); EST Glomerular Filtration Rate 60 (>60); Globulin 2.5 g/dL (2.2-4.2); Glucose 103 mg/dL (70-99); Sodium Level 141 mmol/L (133-145); Total Bilirubin 0.31 mg/dL (0.00-1.30); Vitamin D,25 Hydroxy 50.3 ng/mL (30-100)
[2024-10-05 17:07] LABS: Anti-Thyroglobulin AB < 1.0 IU/mL (0.0-0.9); Thyroglobulin, Serum Qt. 3.3 ng/mL (1.5-38.5)
== END | disposition home or self-care (01) ==
LOC: LAB 09:39
PROVIDERS: PCP Family Medicine; Referring Provider Internal Medicine Endocrinology, Diabetes & Metabolism; Visit Provider Internal Medicine Endocrinology, Diabetes & Metabolism
DX: E89.0 Postprocedural hypothyroidism (principal); Z90.89 Acquired absence of other organs; Z98.890 Other specified postprocedural states
CPT/HCPCS: 36415; 80053; 82306; 83970; 84432; 84439; 84443; 86800

== ENCOUNTER → 2025-01-18 | Outpatient (CLI) | payer BC, SELFPAY ==
[2025-01-18 09:35] LABS: Ionized Calcium Order 1.06
[2025-01-18 10:53] LABS: Calcium 8.5 mg/dL (7.6-11.0)
[2025-01-18 11:57] LABS: PTHIN 23 pg/mL (11-61)
== END | disposition home or self-care (01) ==
LOC: LAB 08:56
PROVIDERS: PCP Family Medicine; Referring Provider Internal Medicine Endocrinology, Diabetes & Metabolism; Visit Provider Internal Medicine Endocrinology, Diabetes & Metabolism
DX: E11.9 Type 2 diabetes mellitus without complications (principal); E83.51 Hypocalcemia
CPT/HCPCS: 36415; 82310; 82330; 83970